=== PATIENT | female | born 1980 | race African-American/Black ===

== ENCOUNTER → 2025-07-10 | Outpatient (CLI) | payer OTHER | LOC: M EKG 08:40 | PROVIDERS: ATTEND Student in an Organized Health Care Education/Training Program | DX: R00.2 Palpitations (principal); R00.0 Tachycardia, unspecified ==

== ENCOUNTER → 2025-08-01 | Outpatient (CLI) | payer MEDICARE, OTHER ==
[2025-08-01 07:08] LABS: BASO # 0.0 10^3/uL (0.0-0.2); BASO % 0.5 % (0.0-1.0); EOS # 0.1 10^3/uL (0.0-0.5); EOS % 2.2 % (0.0-3.0); LYMPH # 1.3 10^3/uL (1.5-5.0); LYMPH % 34.0 % (24.0-44.0); MONO # 0.3 10^3/uL (0.0-0.8); MONO % 8.7 % (2.0-8.0); NEUTROPHILS # 2.0 10^3/uL (1.5-8.5); NEUTROPHILS % 53.8 % (36.0-66.0); PLATELET COUNT, AUTOMATED 321 10^3/uL (150-450)
[2025-08-01 07:55] LABS: IRON (FE) 46 UG/DL (50-170); PERCENT SATURATION 11.4 % (13.2-45.0)
[2025-08-01 08:21] LABS: ESTIMATED AVERAGE GLUCOSE 103.0 MG/DL (60-110)
[2025-08-01 08:28] LABS: ALT/SGPT 39 U/L (7.0-40); AST/SGOT 44 U/L (<34); CARBON DIOXIDE LEVEL 22 MMOL/L (20-31); CHLORIDE LEVEL 106 MMOL/L (98-107); CHOLESTEROL LEVEL 165 MG/DL (<200); CHOLESTEROL RISK RATIO 2.83 (<5); CREATININE FOR GFR 0.75 MG/DL (0.55-1.30); GLOMERULAR FILTRATION RATE > 90.0 (>58); LDL CHOLESTEROL 47.5 MG/DL (<100); NON-HDL-C 106.9 MG/DL; POTASSIUM SERUM 3.8 MMOL/L (3.5-5.1); SODIUM LEVEL 140 MMOL/L (136-145); TOTAL 25(OH) VITAMIN D 24.5 NG/ML (20.0-100.0); TRIGLYCERIDES LEVEL 297 MG/DL (<150); VITAMIN B12 LEVEL 241 PG/ML (211-911)
[2025-08-01 09:07] LABS: CALCIUM LEVEL 9.0 MG/DL (8.5-10.1)
[2025-08-01 12:18] LABS: MALB URINE SIEMENS 3.0 MG/L
[2025-08-01 12:31] LABS: CREATININE, URINE 283.4 MG/DL
[2025-08-01 14:38] LABS: MAU/CREAT RATIO 0.0 MCG/MG (0.0-30.0)
== END ==
LOC: M LAB 06:14
PROVIDERS: ATTEND Student in an Organized Health Care Education/Training Program
DX: E78.00 Pure hypercholesterolemia, unspecified (principal); D64.9 Anemia, unspecified; E66.3 Overweight; Z68.25 Body mass index [BMI] 25.0-25.9, adult; R74.8 Abnormal levels of other serum enzymes; I10 Essential (primary) hypertension; Z79.899 Other long term (current) drug therapy